=== PATIENT | male | born 1970 | race Caucasian/White ===

== ENCOUNTER → 2018-03-29 | Day surgery (SDC) | payer BC ==
[~2018-03-29] MED LIST: LIDOCAINE 1% PF 2 ML VIAL. ID PRN; MIDAZOLAM HCL/PF 2 MG/2 ML VIAL. IV PRN; PROPOFOL 20 ML IV ONE; fentaNYL PF VIAL 100 MCG/2 ML VIAL IV PRN
[2018-03-29] MEDS: IV RINGERS,LACTATED 1000ML 1,000 ML IV SCH ×2 (07:53→09:57)
[2018-03-29 09:55] VITALS: BP 107/59
== END | disposition home or self-care (01) ==
LOC: OPS 07:40 → EDSTATUS 08:30
PROVIDERS: ATTEND Internal Medicine Gastroenterology
DX: Z12.11 Encounter for screening for malignant neoplasm of colon (principal); K57.30 Diverticulosis of large intestine without perforation or abscess without bleeding; K64.0 First degree hemorrhoids; Z83.71 Family history of colonic polyps; Z88.1 Allergy status to other antibiotic agents; Z83.3 Family history of diabetes mellitus; Z82.49 Family history of ischemic heart disease and other diseases of the circulatory system; Z72.89 Other problems related to lifestyle; Z72.0 Tobacco use; Z98.52 Vasectomy status; Z98.890 Other specified postprocedural states
CPT/HCPCS: 45378; J2704; J7120